=== PATIENT | male | born 1975 | race African-American/Black ===

== ENCOUNTER 2019-02-28 16:17 | Emergency (ER) | payer OTHER | END 2019-02-28 16:40 | disposition left against medical advice (07) | LOC: JER 16:17 ==

== ENCOUNTER 2019-02-28 18:11 | Emergency (ER) | payer SELFPAY, OTHER | END 2019-02-28 20:57 | disposition home or self-care (01) | LOC: FER 18:11 ==

== ENCOUNTER 2019-06-03 05:38 | Emergency (ER) | payer OTHER ==
[2019-06-03 05:45] VITALS: TEMP 97.6; BMI 27.5
[2019-06-03] MEDS ORDERED: SODIUM CHLORIDE 1,000 ML IV ONE (05:46)
[2019-06-03] MEDS ORDERED: KETOROLAC TROMETHAMINE 30 MG/1 ML VIAL IVPUSH ONE (05:46)
[2019-06-03] MEDS ORDERED: morphine CARPU-JECT 2 MG/1 ML DISP.SYRIN IVPUSH ONE (05:46)
[2019-06-03] MEDS ORDERED: ONDANSETRON 4 MG/2 ML VIAL IVPB ONE (05:46)
[2019-06-03] MEDS ORDERED: KETOROLAC TROMETHAMINE 30 MG/1 ML VIAL ONE (05:57)
[2019-06-03] MEDS ORDERED: ONDANSETRON 4 MG/2 ML VIAL ONE (05:58)
[2019-06-03] MEDS ORDERED: morphine SULFATE 4 MG/ML VIAL ONE (05:58)
--- NOTE | 2019-06-03 06:41 | PDOC ---
History of Present Illness - General Chief Complaint: Pain, Acute Stated Complaint: RT FLANK PAIN Time Seen by Provider: 06/03/19 05:43 History Source: Patient Exam Limitations: No Limitations - History of Present Illness Initial Comments: 06/03/19 06:38 This is a 43-year-old male without a history of renal colic who comes in complaining of acute onset of right flank pain radiating into his groin area. Patient is complaining of nausea but no vomiting. Patient denies any fevers or chills. Patient is complaining of some dysuria. Patient is otherwise healthy. Allergies: as per nursing notes Past Medical History: none Social history: Lives with family. No smoking. No alcohol. No illicit drugs. Surgical history: None General: No fevers or chills, no weakness, no weight loss HEENT: No change in vision. No sore throat,. No ear pain CardioVascular: no chest discomfort. No shortness of breath Respiratory:No cough, or wheezing. Gastrointestinal: no nausea, vomiting, diarrhea or constipation, No rectal bleeding Genitourinary: Right flank pain and dysuria as per HPI Musculoskeletal: No joint or muscle pain or swelling Neurologic: No headache, vertigo, dizziness or loss of consciousness Psychiatric: nor depression Skin: No rashes or easy bruising Endocrine: no increased thirst or abnormal weight change Allergic: no skin or latex allergy All other systems reviewed and normal GENERAL: The patient is awake, alert, and fully oriented, in no acute distress. HEAD: Normal with no signs of trauma. EYES: Pupils equal, round and reactive to light, extraocular movements intact, sclera anicteric, conjunctiva clear. EXTREMITIES:atraumatic, Normal range of motion, no edema. BACK: There is pain on tenderness palpation right flank and right lower quadrant no guarding or rebound NEUROLOGICAL: Normal speech, normal gait. PSYCH: Normal mood, normal affect. SKIN: Warm, Dry, normal turgor, no rashes or lesions noted. Assessment and plan: This is a 43-year-old male with right flank pain most likely secondary to a kidney stone. Patient given IV pain medications fluids and work-up initiated including CBC comp, UA and spiral CT Care of patient transferred to Dr. Schmitt at 7 AM. Past History - Past Medical History Allergies/Adverse Reactions: Allergies Allergy/AdvReac Type Severity Reaction Status Date / Time No Known Allergies Allergy Verified 02/28/19 16:19 Home Medications: Ambulatory Orders No Home Medications 0 dose .ROUTE UTDICT 07/08/13 COPD: No - Immunization History Td Vaccination: No - Psycho Social/Smoking Cessation Hx Smoking Status: No Smoking History: Unknown if ever smoked Number of Cigarettes Smoked Daily: 0 Cigars Per Day: 0 Information on smoking cessation initiated: No Hx Alcohol Use: No Drug/Substance Use Hx: No Substance Use Type: None Abd/GI Specific PMHX - Complaint Specific PMHX GERD: No *Physical Exam - Vital Signs Last Vital Signs Temp Pulse Resp BP Pulse Ox 97.6 F 76 18 158/107 H 98 06/03/19 05:39 06/03/19 05:39 06/03/19 05:39 06/03/19 05:39 06/03/19 05:39 ED Treatment Course - RADIOLOGY Radiology Studies Ordered: Category Date Time Status SPIRAL- RENAL-STONE CT [CT] Stat CT Scan 06/03/19 05:44 Ordered - Medications Given in the ED: ED Medications Discontinued Medications Generic Name Dose Route Start Last Admin Trade Name Dyana PRN Reason Stop Dose Admin Ketorolac Tromethamine 30 mg 06/03/19 05:46 06/03/19 06:03 Toradol Injection - IVPUSH 06/03/19 05:47 30 mg ONCE ONE Administration Morphine Sulfate 2 mg 06/03/19 05:46 06/03/19 06:02 Morphine Injection - IVPUSH 06/03/19 05:47 2 mg ONCE ONE Administration Ondansetron HCl 8 mg 06/03/19 05:46 06/03/19 06:03 Zofran Injection IVPB 06/03/19 05:47 8 mg ONCE ONE Administration Discharge - Discharge Information Problems reviewed: Yes Clinical Impression/Diagnosis: Rt flank pain Condition: Stable - Follow up/Referral - Patient Discharge Instructions - Post Discharge Activity
[2019-06-03 06:56] LABS: EPI CELLS 1.8 /HPF (0-5/HPF); HYALINE CASTS 4 /lpf (0-8); PH,URINE 6.5 (5.0-8.0); URINE APPEARANCE CLOUDY; URINE BACTERIA 2.7 /hpf (NEGATIVE); URINE BILIRUBIN NEGATIVE (NEGATIVE); URINE COLOR YELLOW; URINE GLUCOSE (UA) NEGATIVE (NEGATIVE); URINE KETONE NEGATIVE (NEGATIVE); URINE LEUK ESTERASE NEGATIVE (NEGATIVE); URINE NITRITE NEGATIVE (NEGATIVE); URINE PROTEIN NEGATIVE (NEGATIVE); URINE RBC 315 /hpf (0-4); URINE UROBILINOGEN 0.2 mg/dL (0.2-1.0); URINE WBC 1 /hpf (0-5)
--- NOTE | 2019-06-03 07:10 | PDOC ---
*Physical Exam - Vital Signs Last Vital Signs Temp Pulse Resp BP Pulse Ox 97.6 F 76 18 158/107 H 98 06/03/19 05:39 06/03/19 05:39 06/03/19 05:39 06/03/19 05:39 06/03/19 05:39 - Physical Exam General Appearance: Yes: Nourished, Appropriately Dressed. No: Apparent Distress HEENT: positive: EOMI, JOSHUA, Normal ENT Inspection, Normal Voice Neck: positive: Trachea midline, Normal Thyroid, Supple. negative: Tender, Rigid Respiratory/Chest: positive: Lungs Clear, Normal Breath Sounds. negative: Chest Tender, Respiratory Distress Cardiovascular: positive: Regular Rhythm, Regular Rate, S1, S2. negative: Edema , JVD, Murmur Vascular Pulses: Femoral (R): 4+, Femoral (L): 4+, Carotid (R): 4+, Carotid (L) : 4+, Dorsalis-Pedis (R): 4+, Doralis-Pedis (L): 4+ Gastrointestinal/Abdominal: positive: Normal Bowel Sounds, Flat, Soft. negative : Tender (no RLQ, LLQ RUQ or LUQ tenderness +BS), Organomegaly, Pulsatile Mass Lymphatic: negative: Adenopathy, Tenderness, Other Musculoskeletal: positive: Normal Inspection. negative: CVA Tenderness Extremity: positive: Normal Capillary Refill, Normal Inspection, Normal Range of Motion Integumentary: positive: Normal Color, Dry, Warm Neurologic: positive: drugless doctor II-XII NML intact, Fully Oriented, Alert, Normal Mood/ Affect, Normal Response, Motor Strength 5/5 ED Treatment Course - LABORATORY CBC & Chemistry Diagram: 06/03/19 06:05 06/03/19 06:05 - ADDITIONAL ORDERS Additional order review: Laboratory Results 06/03/19 06:00 Urine Color Yellow Urine Appearance Cloudy Urine pH 6.5 Ur Specific [place] 1.029 Urine Protein Negative Urine Glucose (UA) Negative Urine Ketones Negative Urine Blood 3+ H Urine Nitrite Negative Urine Bilirubin Negative Urine Urobilinogen 0.2 Ur Leukocyte Esterase Negative Urine WBC (Auto) 1 Urine RBC (Auto) 315 Urine Casts (Auto) 4 U Epithel Cells (Auto) 1.8 Urine Bacteria (Auto) 2.7 06/03/19 07:05 43 y/o male presents with right flank pain that started at 2 am. Uncomfortable with now pressure in the bladder. No fever or chills. [place] nauseous. No fall or trauma. Patient has no hx of kidney stones. Patient seen by Dr. Marie initially and given Morphine, Zofran, and Toradol with IVF. Patient is feeling better. No blood in urine. Denies SOB or chest pain. - Medications Given in the ED: ED Medications Discontinued Medications Generic Name Dose Route Start Last Admin Trade Name Dyana PRN Reason Stop Dose Admin Sodium Chloride 1,000 mls @ 1,000 mls/hr 06/03/19 05:46 06/03/19 06:02 Normal Saline - IV 06/03/19 06:45 1,000 mls/hr .Q1H ONE Administration Ketorolac Tromethamine 30 mg 06/03/19 05:46 06/03/19 06:03 Toradol Injection - IVPUSH 06/03/19 05:47 30 mg ONCE ONE Administration Morphine Sulfate 2 mg 06/03/19 05:46 06/03/19 06:02 Morphine Injection - IVPUSH 06/03/19 05:47 2 mg ONCE ONE Administration Ondansetron HCl 8 mg 06/03/19 05:46 06/03/19 06:03 Zofran Injection IVPB 06/03/19 05:47 8 mg ONCE ONE Administration ED Progress Note - Progress Note Progress Note: 06/03/19 07:10 Right flank pain, appears to be a kidney stone Await CT and labs Patient resting more comfortable after treatment. 06/03/19 07:43 Pt is without pain at this time. CT abd/pelvis shows small punctate calculus right side with mild hydronephrosis Will send home on fluids and Motrin with Flomax Patient is in agreement with plan If worsen return to ER Follow up with Urologist Discharge - Discharge Information Problems reviewed: Yes Clinical Impression/Diagnosis: Rt flank pain, Kidney stone on right side Hydronephrosis Qualifiers: Hydronephrosis type: with renal calculous obstruction Qualified Code(s): N13.2 - Hydronephrosis with renal and ureteral calculous obstruction Condition: Improved Disposition: HOME - Admission No - Follow up/Referral Referrals: David Hughes MD [Staff Physician] - - Patient Discharge Instructions Patient Printed Discharge Instructions: DI for Kidney Stones Additional Instructions: Fluids, rest, Motrin Flomax 0.4 mg daily If worsen return to ER - Post Discharge Activity
[2019-06-03 07:12] VITALS: BP 137/88; PULSE 64
[2019-06-03 07:25] LABS: BILIRUBIN,TOTAL 0.5 mg/dL (0.2-1); BLOOD UREA NITROGEN 16.7 mg/dL (7-18); CALCIUM 8.6 mg/dL (8.5-10.1); CREATININE 1.2 mg/dL (0.55-1.3); POTASSIUM 4.2 mmol/L (3.5-5.1)
== END 2019-06-03 07:55 | disposition home or self-care (01) ==
LOC: FER 05:38
PROC: 3E0333Z Introduction of Anti-inflammatory into Peripheral Vein, Percutaneous Approach (ICD-10-PCS; principal; 2019-06-03)
PROC: 3E033NZ Introduction of Analgesics, Hypnotics, Sedatives into Peripheral Vein, Percutaneous Approach (ICD-10-PCS; 2019-06-03)
PROC: 3E033GC Introduction of Other Therapeutic Substance into Peripheral Vein, Percutaneous Approach (ICD-10-PCS; 2019-06-03)
DX: N13.2 Hydronephrosis with renal and ureteral calculous obstruction (principal)
CPT/HCPCS: 36415; 74176-TC; 80053; 81003; 99283-25; J7030

== ENCOUNTER 2020-10-13 16:48 | Emergency (ER) | payer OTHER | END 2020-10-13 16:57 | disposition home or self-care (01) | LOC: JVIRT 16:48 | DX: U07.1 COVID-19 (principal) | CPT/HCPCS: C9803; G2251-GT; Q3014-GT; U0003 ==

== ENCOUNTER 2023-09-12 10:46 | Day surgery (SDC) | payer OTHER ==
[2023-09-08 11:13] VITALS: BMI 29.5
[2023-09-12 11:03] VITALS: TEMP 97.4
[2023-09-12 11:50] VITALS: PULSE 83; RESP 16
[2023-09-12 12:12] VITALS: BP 114/75
== END 2023-09-12 12:48 | disposition home or self-care (01) ==
LOC: FASU-ENDO 10:46
PROVIDERS: ATTEND Internal Medicine Gastroenterology
PROC: 0DJD8ZZ Inspection of Lower Intestinal Tract, Via Natural or Artificial Opening Endoscopic (ICD-10-PCS; principal; 2023-09-12 11:24)
DX: Z12.11 Encounter for screening for malignant neoplasm of colon (principal)